=== PATIENT | female | born 1980 | race Caucasian/White ===

== ENCOUNTER 2018-09-15 13:45 | Observation (INO) | payer MEDICAID ==
[~2018-09-15] VITALS: Ht 172.7 cm; Wt 81.6 kg
[2018-09-15] MEDS ORDERED: LEVOXYL200 MCG PO (14:03)
[2018-09-15] MEDS ORDERED: [UNRECOGNIZED DRUG - OTHER] (14:04)
[2018-09-15] MEDS ORDERED: ZYLOPRIM300 MG PO (14:04)
[2018-09-15] MEDS ORDERED: ZOCOR10 MG PO (14:05)
[2018-09-15] MEDS ORDERED: BYSTOLIC2.5 MG PO (14:05)
[2018-09-15] MEDS ORDERED: TRAZODONE HCL150 MG PO (14:06)
[2018-09-15] MEDS ORDERED: KLONOPIN1 MG PO (14:07)
[2018-09-15 15:04] LABS: BASOPHILS 0.2 % (0-2); EOSINOPHILS 2.5 % (0-7); HEMATOCRIT 41.5 % (36.0-48.0); IMMATURE GRANULOCYTES 0.3 % (0-5); LYMPHOCYTES 12.6 % (15-50); MCH 32.1 pg (26.0-34.0); MCHC 33.7 g/dL (31.0-37.0); MCV 95.2 fL (80.0-100.0); MEAN PLATELET VOLUME 10.8 fL (7.4-10.4); MONOCYTES 7.4 % (2-11); PLATELET COUNT 315 10x3/uL (130-400); RBC 4.36 10x6/uL (4.00-5.40); RDW 14.1 % (11.5-14.5); WBC 11.2 10x3/uL (4.8-10.8)
[2018-09-15 15:22] LABS: ALBUMIN 3.5 g/dL (3.4-5.0); ALKALINE PHOSPHATASE 57 U/L (46-116); ALT (SGPT) 31 U/L (10-68); BILIRUBIN - TOTAL 0.45 mg/dL (0.2-1.3); CALC OSMOLALITY 276 mosm/kg (275-300); CALCIUM 9.1 mg/dL (8.5-10.1); CARBON DIOXIDE 30.5 mmol/L (21.0-32.0); CHLORIDE - SERUM 100 mmol/L (98-107); CREATININE - SERUM 0.7 mg/dL (0.6-1.3); POTASSIUM - SERUM 3.5 mmol/L (3.5-5.1); PROTEIN - SERUM 7.3 g/dL (6.4-8.2); SODIUM 140 mmol/L (136-145); UREA NITROGEN 8 mg/dL (7-18); eGFR NON AFRICAN AMERICAN > 90 mL/min (90-120)
[2018-09-15 15:23] LABS: AMYLASE - SERUM 17 U/L (25-115); GLUCOSE 105 mg/dL (74-106); LIPASE 94 U/L (73-393)
[2018-09-15 15:24] LABS: TROPONIN-I < 0.017 ng/mL (0.000-0.060)
[2018-09-15 17:02] VITALS: BP 124/82
[2018-09-15 18:30] LABS: APPEARANCE CLEAR (CLEAR); BILIRUBIN NEGATIVE (NEGATIVE); COLOR DK YELLOW (YELLOW); GLUCOSE NEGATIVE (NEGATIVE); HCG URINE NEGATIVE (NEGATIVE); KETONE NEGATIVE (NEGATIVE); NITRITE NEGATIVE (NEGATIVE); PROTEIN NEGATIVE (NEGATIVE); SPECIFIC GRAVITY 1.025 (1.005-1.020); UROBILINOGEN NORMAL (NORMAL)
--- NOTE | 2018-09-15 18:51 | NUR ---
PT RETURNED TO THE ED AT THIS TIME VIA WHEELCHAIR FOLLOWING CT SCAN, NO SIGNS OF DISTRESS UPON RETURN.
--- NOTE | 2018-09-15 19:01 | NUR ---
HAND OFF REPORT GIVEN TO DARÍO MONTERO
--- NOTE | 2018-09-15 19:04 | NUR ---
PLAN OF CARE DISCUSSED WITH PT, PT VERBALIZES UNDERSTANDING, DENIES ANY NEEDS AT THIS TIME. WILL CONTINUE TO MONITOR.
--- NOTE | 2018-09-15 20:50 | NUR ---
RECIEVED TO ROOM VIA W/C ALERT AND ORIENTIATED, STATES HAVING ABD PAIN AND NO BM X 3 DAYS, ORIENTIATED TO ROOM CALL LIGHT IN REACH, SEE SHIFT ASSESSMENT
[2018-09-15 21:17] VITALS: BP 123/81
--- NOTE | 2018-09-15 22:30 | NUR ---
SS ENEMA GIVEN ONLY ABLE TO TOLERATE 300CC HELD FOR 5 MIN, RETURN OF FLUID AND 2 HARD STOOLS STATES ALREADY FEELS BETTER, REPEATED SS ENEMA WITH AGAIN 300CC TOLERATED AND RETURN OF ONLY COLORED FLUID.
[2018-09-16 00:01] VITALS: BP 123/81; BMI 27.4
[2018-09-16 00:56] VITALS: BP 111/70
[2018-09-16 05:04] VITALS: BP 99/61
[2018-09-16 06:14] LABS: BASOPHILS 0.3 % (0-2); EOSINOPHILS 4.6 % (0-7); IMMATURE GRANULOCYTES 0.1 % (0-5); LYMPHOCYTES 20.5 % (15-50); MCH 31.2 pg (26.0-34.0); MCHC 32.4 g/dL (31.0-37.0); MCV 96.1 fL (80.0-100.0); MEAN PLATELET VOLUME 11.5 fL (7.4-10.4); NEUTROPHILS 65.5 % (40-80); PLATELET COUNT 250 10x3/uL (130-400); RBC 3.85 10x6/uL (4.00-5.40); RDW 14.6 % (11.5-14.5); WBC 9.1 10x3/uL (4.8-10.8)
[2018-09-16 06:29] LABS: CALC OSMOLALITY 269 mosm/kg (275-300); CALCIUM 8.4 mg/dL (8.5-10.1); CHLORIDE - SERUM 101 mmol/L (98-107); CREATININE - SERUM 0.6 mg/dL (0.6-1.3); GLUCOSE 130 mg/dL (74-106); SODIUM 135 mmol/L (136-145); UREA NITROGEN 7 mg/dL (7-18); eGFR NON AFRICAN AMERICAN > 90 mL/min (90-120)
[2018-09-16 06:35] LABS: POTASSIUM - SERUM 2.9 mmol/L (3.5-5.1)
[2018-09-16 08:58] VITALS: BP 120/76
--- NOTE | 2018-09-16 09:36 | NUR ---
PATIENT HAD SOME DIARRHEA AT [address] MORRIS WAS NOTIFIED THAT HER K WAS 2.9. SHE WAS PLACED ON ELECTROLYTE PROTOCOL. WILL TREAT DIRECTED. SHE DOES AT TIMES TAKE K SUPPLEMENTS BUT WITHOUT BLOOD WORK IS UNSURE OF WHEN TO TAKE THEM.
[2018-09-16 10:49] VITALS: Ht 172.7 cm; Wt 81.6 kg
--- NOTE | 2018-09-16 11:05 | NUR ---
left foot bruised and purple pedal pulse palpable can wiggle toes cap refil < 3 sec. foot swollen wctm
[2018-09-16 13:26] VITALS: BP 124/88
[2018-09-16] MEDS ORDERED: FLORAJEN3 CAPS460 MG PO (16:25)
[2018-09-16] MEDS ORDERED: LEVAQUIN750 MG PO (16:26)
[2018-09-16 18:00] VITALS: BP 141/94
--- NOTE | 2018-09-20 16:17 | MORECARE ---
CASE MANAGEMENT DISCHARGE SUMMARY PATIENT: TOMASZ KRUEGER UNIT: [id number] ADM DATE: 09/15/18 AGE: 38 : 78 SEX: F ROOM/BED: D.2226 AUTHOR: SHYLA RODRIGUEZ PHYSICIAN: REFERRING PHYSICIAN: RUIZ MORRIS MD DATE OF SERVICE: 09/20/18 Discharge Plan Patient Name: TOMASZ KRUEGER [facility] : 1980 Planned Disposition: Anticipated Discharge Date: Discharge Date: 09/16/2018 Expected LOS: 0 Initial Reviewer: [email or web address] Initial Review Date: 09/20/2018 Generated: 09/20/18 5:17 pm Patient Name: TOMASZ KRUEGER Page [id number] at 1617 All edits/amendments must be made on the electronic document DICTATION DATE: 09/20/181615 [place] JUDGE: RAMOS 09/20/181615 RPT#: [id number] DC DATE:09/16/18 STATUS: DIS IN [facility] [address] [place] [address] END OF REPORT
== END 2018-09-16 21:54 | disposition home or self-care (01) ==
LOC: D.ER 13:45 → OBSVTIME 19:58 → D.MS 19:58
PROVIDERS: Family Medicine; ADMIT Emergency Medicine; ATTEND Emergency Medicine
DX: K56.41 Fecal impaction (principal); K52.9 Noninfective gastroenteritis and colitis, unspecified; F12.90 Cannabis use, unspecified, uncomplicated; E86.0 Dehydration; E87.6 Hypokalemia; F32.9 Major depressive disorder, single episode, unspecified; F17.213 Nicotine dependence, cigarettes, with withdrawal; E03.9 Hypothyroidism, unspecified

== ENCOUNTER → 2020-08-13 13:37 | Outpatient (CLI) | payer MEDICAID ==
[2018-09-16 10:49] VITALS: BMI 27.3
[~2020-08-13 13:37] MED LIST: BYSTOLIC2.5 MG PO; FLORAJEN3 CAPS460 MG PO; KLONOPIN1 MG PO; LEVAQUIN750 MG PO; LEVOXYL200 MCG PO; TRAZODONE HCL150 MG PO; ZOCOR10 MG PO; ZYLOPRIM300 MG PO; [UNRECOGNIZED DRUG - OTHER]
== END | disposition home or self-care (01) ==
LOC: D.LAB 13:37
PROVIDERS: ATTEND Internal Medicine Pulmonary Disease
DX: Z11.52 Encounter for screening for COVID-19 (principal)

== ENCOUNTER → 2020-08-17 11:20 | Outpatient (CLI) | payer MEDICAID ==
[2018-09-16 10:49] VITALS: BMI 27.3
== END | disposition home or self-care (01) ==
LOC: D.RT 11:20
DX: R06.02 Shortness of breath (principal); Z11.59 Encounter for screening for other viral diseases